=== PATIENT | male | born 1965 | race Caucasian/White ===

== ENCOUNTER 2024-07-07 09:37 | Outpatient (CLI) | payer BC, SELFPAY ==
--- NOTE | 2024-07-07 11:09 | W.ANESCHARGE ---
Anesthesia Charges Start Date/Time Anesthesia Start Date: 07/07/24 Anesthesia Start Time: 10:31 Stop Date/Time Anesthesia Stop Date: 07/07/24 Anesthesia Stop Time: 11:06
== END 2024-07-07 09:38 | disposition home or self-care (01) ==
LOC: OP CLINIC 09:42
PROVIDERS: PCP Family Medicine; Visit Provider Internal Medicine Gastroenterology
DX: Z12.11 Encounter for screening for malignant neoplasm of colon (principal); K51.00 Ulcerative (chronic) pancolitis without complications; K63.89 Other specified diseases of intestine; Z86.0101 Personal history of adenomatous and serrated colon polyps
CPT/HCPCS: 00811; 45380; 88305; J2704